=== PATIENT | female | born 1995 | race Caucasian/White ===

== ENCOUNTER 2016-09-30 20:18 | Emergency (ER) | payer BC ==
--- NOTE | 2016-09-30 21:49 | ERNOTE ---
Medical Problem HPI - Narrative Date of Service: 09/30/16 - General Chief Complaint: Nausea/Vomiting Time Seen by Provider: 09/30/16 21:31 Source: patient Exam Limitations: no limitations - Immun/Allergies/Home Medications Immunizations: IMMUNIZATION HX Immunizations Up to Date No History of Influenza Vaccine No Hx Pneumococcal Vaccination No Allergies/Adverse Reactions: Allergies No Known Allergies Allergy (Unverified 04/30/15 11:17) Home Medications: HOME MEDICATIONS Ondansetron [Zofran Odt] 8 mg PO Q8H PRN #10 tab 09/30/16 [Last Taken Unknown] Sulfamethoxazole/Trimethoprim [Bactrim Ds] 1 tab PO BID #20 tab 09/30/16 [Last Taken Unknown] - History of Present History Narrative: Patient is a 20 yo female with onset of nausea and vomiting x 2 days. No associated fevers, ill exposures. Patient LMP was 2 mon ago and not on oral contraceptives. + Sexually active. Timing: getting worse Severity: mild Modifying Factors - (Improves): Present: rest Modifying Factors - (Worsens): Present: eating Review of Systems - Narrative Narrative: Patient has no hx of renal stones, uti, no prior - Review of Systems Constitutional: Present: malaise, other - does not feel well. EYE: Present: no symptoms reported ENT: Present: no symptoms reported Respiratory: Present: no symptoms reported Cardiology: Present: no symptoms reported Gastrointestinal/Abdominal: Present: nausea, vomiting Genitourinary: Present: no symptoms reported Musculoskeletal: Present: back pain - right flank pain notable Skin: Present: no symptoms reported Neurological: Present: no symptoms reported Endocrine: Present: no symptoms reported Hematologic/Lymphatic: Present: no symptoms reported Psych: Present: no symptoms reported All Other Systems: All systems neg except as marked - Patient's Past Medical History Patient History - Medical: No pertinent hx Patient History - Cardiac/Respiratory: Asthma, Hypertension Patient History - Cancer: No Hx of Cancer Patient History - Surgical Procedures: No surgical history Patient History - Other: None LMP (females 10-50): irregular, sexually active, no bcp - Social History Living Situations: home Abuse History: No History of abuse Psych History: Hx of Anxiety Smoking Status: Current every day smoker Patient requests Smoking Cessation Consult: No Initiate information on Smoking Cessation: No Alcohol Use: none Drug Use: none - Immunizations Immunizations Up to Date: No Hx Pneumococcal Vaccination: No History of Influenza Vaccine: No Physical Exam - Physical Exam General Appearance: Present: wd/wn, mild distress Eye Exam: Normal inspection: bilateral, PERRL: bilateral, EOMI: bilateral Ears, Nose, Throat: Present: normal ENT inspection, normal pharynx Neck: Present: normal inspection, nontender Respiratory: Present: no respiratory distress, normal breath sounds, no accessory muscle use, chest nontender, lungs clear Cardiovascular/Chest: Present: regular rate, rhythm, no murmur, normal peripheral pulses Gastrointestinal/Abdominal: Present: normal bowel sounds, nontender, nondistended, soft, no organomegaly Rectal Exam: Present: deferred Back Exam: Present: normal inspection, normal range of motion, CVA tenderness (R ) Extremity Exam: Present: normal inspection Neurological Exam: Present: alert, oriented, normal mood/affect, no motor/ sensory deficits Skin Exam: Present: normal color Lymphatic Exam: Present: no adenopathy Pelvic Exam: Present: deferred ED Progress - Results and Orders Patient's Lab Results:: I have reviewed the patient's lab results. - WBC ELEVEATED, AND UA ABNORMAL - Vital Signs Patient's Vital Signs:: I have reviewed the patient's vital signs. Vital Signs: Vital Signs 09/30/16 20:32 Temperature 36.5 C Pulse Rate 90 Respiratory 18 Rate Blood Pressure 150/99 O2 Sat by Pulse 97 Oximetry - Progress/Reassessment Chief Complaint: Nausea/Vomiting Progress:: Unchanged - PATIENT requesting note for work Plan - Plan Plan: Patient will be discharged home with work excuse today and tomorrow, Recommend she start bactrim urine culture pending and drink lots of water, cranberry juice to avoid uti worsening, Recommend see Dr. Elizabeth Leija on Sunday if not improving. Departure - Departure Clinical Impression: UTI (urinary tract infection) Qualifiers: Urinary tract infection type: site unspecified Hematuria presence: without hematuria Qualified Code(s): N39.0 - Urinary tract infection, site not specified Vomiting Qualifiers: Vomiting type: unspecified Vomiting Intractability: unspecified Nausea presence : unspecified Qualified Code(s): R11.10 - Vomiting, unspecified Disposition: Home self-care Condition: Good Instructions: Nausea, Adult, Rehydration, Adult, Urine Culture and Sensitivity Testing Referrals: Jaciel Engel MD [Primary Care Provider] - Prescriptions: Ondansetron [Zofran Odt] 8 mg PO Q8H PRN #10 tab PRN Reason: Nausea Sulfamethoxazole/Trimethoprim [Bactrim Ds] 1 tab PO BID #20 tab
[2016-09-30 22:07] LABS: Hematocrit 40.9 % (37.0-47.0); Hemoglobin 13.1 gm/dL (12.5-16.0); Mean Cell Volume 82.8 fl (78-100); Mean Corpuscular Hemoglobin 26.5 pg (27-31); Mean Platelet Volume 9.2 fl (6.0-9.5); Neutrophil # 8.3 K/mm3 (1.3-6.0); Neutrophil % 63.5 % (42-75.0); Platelet Count 387 K/mm3 (150-450); Red Blood Count 4.94 M/mm3 (4.2-5.4); Red Cell Distribution Width 14.4 % (11.5-14.0)
[2016-09-30 22:20] LABS: Urine Appearance Clear; Urine Bacteria 2+; Urine Bilirubin Negative (NEGATIVE); Urine Blood Negative /ul (NEGATIVE); Urine Color Dark Yellow; Urine Ketone Negative (NEGATIVE); Urine Mucus Moderate - 2+; Urine Nitrite Negative (NEGATIVE); Urine Protein 15 mg/dL (NEGATIVE); Urine RBC None Seen /hpf (0-5); Urine Specific Gravity >=1.030 SP.GR. (1.005-1.010); Urine Urobilinogen Normal (NORMAL); Urine pH 5.5 pH (5.0-7.0)
[2016-09-30 22:20] LABS: Albumin * 3.8 gm/dl (3.4-5.0); Anion Gap 14.1 mmol/L (6.8-13.8); BUN/Creatinine Ratio 16.5 (9.0-21.6); Bilirubin, Total 0.2 mg/dL (0.0-1.1); Ca. Corrected For Albumin 9.1 mg/dL (8.4-10.2); Calcium * 9.3 mg/dL (7.9-10.9); Carbon Dioxide 24.8 mmol/L (24-32.6); Potassium 3.9 mmol/L (3.4-4.6); Total Protein 7.8 gm/dL (6.2-8.2)
[2016-09-30] MEDS ORDERED: SULFAMETHOXAZOLE/TRIMETHOPRIM 1 TAB TABLET PO ONE (23:16)
[2016-09-30] MEDS ORDERED: ONDANSETRON 4 MG TAB.RAPDIS PO ONE (23:17)
[2016-09-30] MEDS ORDERED: ONDANSETRON 4 MG TAB.RAPDIS ONE (23:27)
[2016-09-30] MEDS ORDERED: SULFAMETHOXAZOLE/TRIMETHOPRIM 1 TAB TABLET ONE (23:27)
[2016-10-01 00:03] VITALS: BP 143/82
== END 2016-09-30 23:35 | disposition home or self-care (01) ==
LOC: ER 20:18
DX: N39.0 Urinary tract infection, site not specified (principal); R11.10 Vomiting, unspecified; Z72.0 Tobacco use

== ENCOUNTER 2017-02-13 10:41 | Emergency (ER) | payer BC ==
[2017-02-13 13:04] VITALS: BP 143/85
--- NOTE | 2017-02-13 13:30 | ERNOTE ---
Medical Problem HPI - Narrative Date of Service: 02/13/17 - General Chief Complaint: General Assessment Time Seen by Provider: 02/13/17 13:07 Source: patient Exam Limitations: no limitations - Immun/Allergies/Home Medications Immunizations: IMMUNIZATION HX Immunizations Up to Date Yes History of Influenza Vaccine No Hx Pneumococcal Vaccination No Allergies/Adverse Reactions: Allergies No Known Allergies Allergy (Unverified 04/30/15 11:17) Home Medications: HOME MEDICATIONS Ondansetron [Zofran Odt] 8 mg PO Q8H PRN #10 tab 09/30/16 [Last Taken Unknown] Sulfamethoxazole/Trimethoprim [Bactrim Ds] 1 tab PO BID #20 tab 09/30/16 [Last Taken Unknown] Acyclovir [Zovirax 5% Ointment] 1 appl TP 5XD #1 tube 02/13/17 [Last Taken Unknown] - History of Present History Narrative: Pt. comes in with c/o swollen lips for a week with sores in the creases of her lips. Pt. states taht this occurs occasional and causes a burning pain and swelling and then will resolve by the time she gets an appointment with her PCP. Pt. denies any SOB, CP, NVD, sore throat, fever, face pain, headache, dizziness, or weakness. Pt. denies any sores anyplace else on body. Pt. denies any alleviating factors, aggravating factors, or prehospital treatment. Review of Systems - Review of Systems Constitutional: Present: no symptoms reported. Absent: recent illness, fever, chills, weakness, fatigue, malaise EYE: Present: no symptoms reported ENT: Present: other - maouth swelling pain and sores Respiratory: Present: no symptoms reported. Absent: shortness of breath, cough , wheezing Cardiology: Present: no symptoms reported. Absent: chest pain, palpitations, edema Gastrointestinal/Abdominal: Present: no symptoms reported. Absent: nausea, vomiting, diarrhea Genitourinary: Present: no symptoms reported Musculoskeletal: Present: no symptoms reported. Absent: back pain, joint pain Skin: Present: rash - see above Neurological: Present: no symptoms reported. Absent: headache, dizziness/light- headedness, numbness, tingling All Other Systems: All systems neg except as marked - Patient's Past Medical History Patient History - Medical: No pertinent hx Patient History - Cardiac/Respiratory: Asthma, Hypertension Patient History - Cancer: No Hx of Cancer Patient History - Surgical Procedures: No surgical history Patient History - Other: None LMP (females 10-50): last week - Social History Living Situations: home Abuse History: No History of abuse Psych History: Hx of Anxiety Smoking Status: Current every day smoker Have you smoked in the past 12 months: Yes Alcohol Use: occasionally Drug Use: none - Immunizations Immunizations Up to Date: Yes Hx Pneumococcal Vaccination: No History of Influenza Vaccine: No Physical Exam - Physical Exam General Appearance: Present: wd/wn, alert, no apparent distress Head Exam: Present: normal inspection, no evidence of injury Eye Exam: Normal inspection: bilateral Ears, Nose, Throat: Present: normal except -, other - open crusting lesions on B sides of lips outer Neck: Present: normal inspection. Absent: lymphadenopathy (R), lymphadenopathy (L) Respiratory: Present: no respiratory distress, normal breath sounds, no accessory muscle use, chest nontender, lungs clear Cardiovascular/Chest: Present: regular rate, rhythm, no murmur, normal peripheral pulses Neurological Exam: Present: alert, oriented, normal mood/affect, no motor/ sensory deficits Skin Exam: Present: normal color, warm/dry, other - see above ED Progress - Vital Signs Patient's Vital Signs:: I have reviewed the patient's vital signs. Vital Signs: Vital Signs 02/13/17 02/13/17 11:21 13:02 Temperature 36.2 C L Pulse Rate 68 65 Respiratory 16 16 Rate Blood Pressure 146/79 143/85 O2 Sat by Pulse 98 97 Oximetry - Progress/Reassessment Chief Complaint: General Assessment Departure - Departure Clinical Impression: Herpes simplex Disposition: Home self-care Condition: Good Instructions: Cold Sore, [id number] Additional Instructions: Please follow up with primary provider in 2-3 days if no improvement. Referrals: Jaciel Engel MD [Primary Care Provider] - Prescriptions: Acyclovir [Zovirax 5% Ointment] 1 appl TP 5XD #1 tube
[2017-02-14 16:30] LABS: Herpes Simplex Type 2 IgG Ab <0.90 index
== END 2017-02-13 13:41 | disposition home or self-care (01) ==
LOC: ER 10:41
DX: B00.9 Herpesviral infection, unspecified (principal); F17.200 Nicotine dependence, unspecified, uncomplicated

== ENCOUNTER 2017-07-23 12:30 | Emergency (ER) | payer BC ==
--- NOTE | 2017-07-23 13:13 | ERNOTE ---
Back Pain ER HPI Date of Service: 07/23/17 Presenting Symptoms: injury/pain to back Time Seen by Provider: 07/23/17 12:51 Source: patient, RN notes reviewed Exam Limitations: no limitations Immunizations: IMMUNIZATION HX Immunizations Up to Date Yes History of Influenza Vaccine No Hx Pneumococcal Vaccination No Allergies/Adverse Reactions: Allergies No Known Allergies Allergy (Unverified 04/30/15 11:17) Home Medications: HOME MEDICATIONS Ondansetron [Zofran Odt] 8 mg PO Q8H PRN #10 tab 09/30/16 [Last Taken Unknown] Sulfamethoxazole/Trimethoprim [Bactrim Ds] 1 tab PO BID #20 tab 09/30/16 [Last Taken Unknown] Acyclovir [Zovirax 5% Ointment] 1 appl TP 5XD #1 tube 02/13/17 [Last Taken Unknown] Narrative: 21 year old female ambulatory to the ED for pain radiating down the back of her left leg that began 3 days ago. She is [address] Dr[address] Snider for her first OB appointment last week. She has never had problems with back pain before. She initially had pain in her low back, but today the pain is only in her leg. She denies any injury. She has not been taking anything for pain. Date (Duration): 07/20/17 Quality/Severity: Reports: moderate, aching Location of pain: Reports: lower back, radiating to lf thigh/leg Activities at Onset: Reports: none Recent Injury?: Reports: no Associated Symptoms: Denies: fever/chills, sweating, constipation/incontinence, nausea/vomiting, problems urinating, difficulty walking, lightheadedness, numbess/weakness in legs Prior Treament: Denies: similar symptoms before Review of Systems - Review of Systems Constitutional: Absent: recent illness, fever, malaise EYE: Present: no symptoms reported ENT: Present: no symptoms reported Respiratory: Absent: shortness of breath, cough Cardiology: Absent: chest pain, palpitations, edema Gastrointestinal/Abdominal: Absent: nausea, vomiting, abdominal pain Genitourinary: Absent: dysuria, hematuria Musculoskeletal: Present: back pain. Absent: joint pain, joint swelling Skin: Absent: rash, lesions, lumps Neurological: Absent: weakness, numbness, tingling Endocrine: Present: no symptoms reported Hematologic/Lymphatic: Present: no symptoms reported Psych: Present: no symptoms reported - Patient's Past Medical History Patient History - Medical: Obesity Patient History - Cardiac/Respiratory: Asthma, Hypertension Patient History - Cancer: No Hx of Cancer Patient History - Surgical Procedures: No surgical history Patient History - Other: None LMP (females 10-50): - LMP (Calendar): 05/09/17 - Social History Living Situations: home Abuse History: No History of abuse Psych History: Hx of Anxiety Smoking Status: Current every day smoker Have you smoked in the past 12 months: Yes Do you dip or chew tobacco: No Alcohol Use: none Drug Use: none - Immunizations Immunizations Up to Date: Yes Hx Pneumococcal Vaccination: No History of Influenza Vaccine: No Physical Exam - Physical Exam General Appearance: Present: wd/wn, alert, mild distress, obese Head Exam: Present: normal inspection Eye Exam: Normal inspection: bilateral Neck: Present: normal inspection, nontender, supple, full range of motion Respiratory: Present: no respiratory distress, normal breath sounds, no accessory muscle use, lungs clear Cardiovascular/Chest: Present: regular rate, rhythm, no murmur Back Exam: Present: normal range of motion, no CVA tenderness, no vertebral tenderness. Absent: muscle spasm Extremity Exam: Present: normal inspection, normal range of motion, no edema Neurological Exam: Present: alert, oriented, normal mood/affect, no motor/ sensory deficits, other - Normal strength against resistance in lower extremities DTR: N=norm/NB=norm/brisk/A=abs/DD=dull/dimin/HC=hyperactive: Knee (R): Normal, Knee (L): Normal Skin Exam: Present: normal color, warm/dry ED Progress - Vital Signs Patient's Vital Signs:: I have reviewed the patient's vital signs. Vital Signs: Vital Signs 07/23/17 12:45 Temperature 36.4 C L Pulse Rate 100 Respiratory 20 Rate Blood Pressure 152/86 O2 Sat by Pulse 99 Oximetry - Progress/Reassessment Chief Complaint: Lower Extremity Pain/ Injury Progress:: Unchanged Departure Clinical Impression: Low back pain with sciatica Qualifiers: Chronicity: acute Back pain laterality: left Sciatica laterality: sciatica of left side Qualified Code(s): M54.42 - Lumbago with sciatica, left side - Departure Disposition: Home Follow Up Needed Condition: Good Instructions: Sciatica, [id number], Back Exercises, [id number], Form - Excuse from Work, School, or Physical Activity Additional Instructions: Stretching and walking are helpful Heat may also help with pain Tylenol for pain as directed on label
[2017-07-24 08:36] VITALS: BP 152/86
== END 2017-07-23 13:15 | disposition home or self-care (01) ==
LOC: ER 12:30
DX: Z33.1 Pregnant state, incidental; F17.200 Nicotine dependence, unspecified, uncomplicated; M54.42 Lumbago with sciatica, left side; Z3A.11 11 weeks gestation of pregnancy

== ENCOUNTER 2018-01-29 18:21 | Inpatient (IN) | payer BC, MEDICAID ==
[2018-01-29] MEDS ORDERED: NALBUPHINE HCL 10 MG/ML AMPUL IV PRN ×2 (18:28)
[2018-01-29] MEDS ORDERED: LIDOCAINE HCL 50 ML VIAL PERI PRN (18:28)
[2018-01-29] MEDS ORDERED: OXYTOCIN/DEXTROSE 5%-WATER 30 UNITS/500 ML BAG IV ONE (18:28)
[2018-01-29] MEDS ORDERED: ONDANSETRON HCL/PF 2 MG/ML VIAL IV PRN ×2 (18:28→23:55)
[2018-01-29] MEDS ORDERED: MISOPROSTOL 100 MCG TABLET VG SCH (18:30)
[2018-01-29] MEDS ORDERED: PENICILLIN G POTASSIUM 5 MILLIONUNT in DEXTROSE 5 % IN WATER 100 ML IV ONE ×2 (19:00)
[2018-01-29] MEDS ORDERED: CALCIUM CARBONATE 500 MG TAB.CHEW PO PRN (21:10)
--- NOTE | 2018-01-29 22:26 | HP ---
Chief Complaint - Chief Complaint Date of Service: 01/29/18 Time of Service: 22:17 Chief Complaint: My water broke History of Present Illness: The patient had a big gush of fluid at home and initially she thought she peed in her pants. She denied any ctx at that time or VB. Fetus is active. Medical History (Last Reviewed 01/29/18 @ 13:39 by Javon Vargas RN) Hypertension affecting Onset Date: 07/17/17 Heart palpitations Onset Date: ~09/28/16 Morbid obesity Onset Date: 07/17/17 PTSD (post-traumatic stress disorder) Onset Date: ~09/28/16 Tobacco abuse Onset Date: ~09/28/16 Surgical History: Surgical History (Last Reviewed 01/29/18 @ 13:39 by Javon Vargas RN) No pertinent past surgical history Family History: Family History (Last Reviewed 01/29/18 @ 13:39 by Javon Vargas RN) Father Diabetes Arthritis Mother Diabetes Migraines Myocardial infarction, Onset Age: 40 Social History: Preferred Language Persian Abuse History No History of abuse Psych History Hx of Anxiety Review Of Systems (GEN) - Review of Systems EENTM: Present: No Symptoms Reported Respiratory: Present: No Symptoms Reported Cardiac: Present: No Symptoms Reported Abdominal: Present: No Symptoms Reported Genitourinary: Present: Other - Loss of fluid Musculoskeletal: Present: No Symptoms Reported Neurological: Present: No Symptoms Reported Skin: Present: No Symptoms Reported Endocrine: Present: No Symptoms Reported Immunizations: IMMUNIZATION HX Immunizations Up to Date Yes History of Influenza Vaccine No Hx Pneumococcal Vaccination No Allergies/Adverse Reactions: Allergies Allergy/AdvReac Type Severity Reaction Status Date / Time No Known Allergies Allergy Verified 01/29/18 13:38 Home Medications: HOME MEDICATIONS [id number]/Iron Fumarate/FA/Dss [ 19 Tablet] 1 ea PO DAILY 09/16/17 [Last Taken Unknown] Exam - Exam Vital Signs: Vital Signs - Last Taken Temp 36.7 C 01/29/18 20:17 Pulse 105 H 01/29/18 20:17 Resp 18 01/29/18 20:17 BP 139/58 01/29/18 20:17 Pulse Ox 99 01/29/18 20:17 Constitutional: Present: Alert, Oriented x3, Cooperative, No distress Back Exam: Present: normal inspection Breasts: Present: Exam deferred Respiratory: Present: chest non-tender, lungs clear Cardiovascular/Chest: Present: normal peripheral pulses, edema - 1+ edema bilaterally Abdomen: Present: Normal bowel sounds, soft, nontender /Rectal: Present: Exam deferred Extremity: Present: non-tender, no calf tenderness Skin Exam: Present: normal color, warm/dry, no cyanosis Appearance: Present: appropriate appearance Eye contact: Present: cooperative, good eye contact Thoughts: Present: normal thought pattern Diagnostic Studies: Laboratory Results Blood Type A Positive 01/29/18 19:00 Antibody Screen Negative 01/29/18 19:00 Assessment/Plan - Narrative Narrative: PROM at term. Pitocin augmentation. GBS positive: GBS prophylaxis CHTN: BPs normal, continue to monitor
[2018-01-29] MEDS: PENICILLIN G POTASSIUM 2.5 MILLIONUNT in DEXTROSE 5 % IN WATER 100 ML IV SCH ×2 (22:56)
[2018-01-29] MEDS ORDERED: BUPIVACAINE HCL/PF 30 ML VIAL EP SCH (23:45)
[2018-01-29] MEDS ORDERED: NALOXONE HCL 1 MG/1 ML SYRG IV PRN (23:55)
[2018-01-30] MEDS: RINGER'S SOLUTION,LACTATED 1,000 ML IV PRN ×3 (00:02→15:02)
--- NOTE | 2018-01-30 00:25 | ANES ---
Anesthesia Pre Procedure Eval Vitals/Labs: Last Vital Signs Temp 36.7 C 01/29/18 20:17 Pulse 105 H 01/29/18 20:17 Resp 18 01/29/18 20:17 BP 139/58 01/29/18 20:17 Pulse Ox 99 01/29/18 20:17 HOME MEDICATIONS [id number]/Iron Fumarate/FA/Dss [ 19 Tablet] 1 ea PO DAILY 09/16/17 [Last Taken Unknown] Allergies/Adverse Reactions: Allergies Allergy/AdvReac Type Severity Reaction Status Date / Time No Known Allergies Allergy Verified 01/29/18 13:38 - Planned Procedure Planned Procedure: labor epidural Medication List Reviewed:: Yes Allergies Verified: Yes Medical History (Last Reviewed 01/29/18 @ 13:39 by Javon Vargas RN) Hypertension affecting Onset Date: 07/17/17 Heart palpitations Onset Date: ~09/28/16 Morbid obesity Onset Date: 07/17/17 PTSD (post-traumatic stress disorder) Onset Date: ~09/28/16 Tobacco abuse Onset Date: ~09/28/16 Surgical History (Last Reviewed 01/29/18 @ 13:39 by Javon Vargas RN) No pertinent past surgical history Family History (Last Reviewed 01/29/18 @ 13:39 by Javon Vargas RN) Father Diabetes Arthritis Mother Diabetes Migraines Myocardial infarction, Onset Age: 40 - Cardiovascular Tolerates Activity: Good - Anesthesia Assessment and Plan ASA Class: PS, III Anesthesia Type Plan: Epidural
--- NOTE | 2018-01-30 00:47 | ANES ---
Anesthesia Procedure Note Procedure Note: ANESTHESIA PROCEDURE NOTE Date of Procedure: 01/30/2018. Time of procedure: 0. Performed by: Adalberto Armstrong CRNA [place] Specialists: None. Preprocedure diagnosis: Active labor. Post procedure diagnosis: Same. Procedure: Insertion of labor epidural. Indications: The patient is a 22 -year-old female in active labor requesting labor epidural for pain management. Findings: See below. Details of the procedure: The patient was placed in a sitting position. DuraPrep as well as Betadine swabs X3 was applied to the patient's back. Patient was then draped in a sterile fashion. Lidocaine 1% was infiltrated to the skin and subcutaneous tissues at the level of the L3-4 interspace. The epidural space was identified using a 18-gauge Tuohy needle with loss-of- resistance technique. Epidural catheter was inserted to a depth of 13 centimeters at skin. Negative test dose was elicited using 3 mL of 1.5% preservative-free lidocaine plus epinephrine 1 200,000. The epidural catheter was then taped and secured in place. A loading dose of 8 mL of 0.25% preservative-free bupivacaine was administered to the epidural catheter after negative aspiration for blood and CSF. EBL: Minimal. Fluids: N/A. Specimen: N/A. Post procedure condition: The patient tolerated the procedure well. No complications were noted. Thank you for this consultation. Adalberto Armstrong CRNA
--- NOTE | 2018-01-30 00:47 | ANES ---
Post Anesthesia Assessment - Vital Signs Vitals: Last Vital Signs Temp 36.4 C 01/30/18 00:44 Pulse 86 01/30/18 00:44 Resp 18 01/30/18 00:44 BP 139/62 01/30/18 00:44 Pulse Ox 98 01/30/18 00:44 Airway Patency: Normal - Mental Status Level Of Consciousness: Awake - N/V Assessment Nausea/Vomiting Presence: None Dehydration:: No
[2018-01-30] MEDS: BUPIVACAINE HCL/0.9 % NACL/PF 250 ML EP PRN ×2 (00:59→15:33)
[2018-01-30] MEDS: PENICILLIN G POTASSIUM 2.5 MILLIONUNT in DEXTROSE 5 % IN WATER 100 ML IV SCH ×8 (03:07→14:15)
--- NOTE | 2018-01-30 08:31 | PN ---
Progess Note - Interim Date: 01/30/18 Time: 08:29 Narrative: 01/30/18 08:29 Patient comfortable with epidural VSS cvx 3-4/60/-2 Fetus is cat 1 Pitocin currently at 12 milliunits Continue to titrate pitocin up
[2018-01-30] MEDS ORDERED: OXYTOCIN 20 UNITS in RINGER'S SOLUTION,LACTATED 1,000 ML IV ONE (15:53)
[2018-01-30] MEDS ORDERED: METOCLOPRAMIDE HCL 5 MG/ML VIAL IV ONE (15:53)
[2018-01-30] MEDS ORDERED: RINGER'S SOLUTION,LACTATED 1,000 ML IV PRN (15:53)
[2018-01-30] MEDS ORDERED: FAMOTIDINE 20 MG in DEXTROSE 5 % IN WATER 100 ML IV ONE ×2 (15:53)
[2018-01-30] MEDS ORDERED: ceFAZolin SODIUM 3 GM in DEXTROSE 5 % IN WATER 100 ML IV ONE ×2 (15:53)
[2018-01-30] MEDS ORDERED: CITRIC ACID/SODIUM CITRATE 60 ML BTL PO ONE (15:53)
--- NOTE | 2018-01-30 15:58 | PN ---
Progess Note - Interim Date: 01/30/18 Time: 15:56 Narrative: 01/30/18 15:56 Patient's cervix rechecked cvx is 4-5/70/-2 or unchanged Pitocin at 20 milliunits per minute Proceed with delivery for arrest of dilation. All risks, benefits, and alternatives of the procedure were explained to the patient and the patient consents to the procedure.
--- NOTE | 2018-01-30 16:26 | ANES ---
Anesthesia Pre Procedure Eval Vitals/Labs: Last Vital Signs Temp 36.4 C 01/30/18 00:44 Pulse 86 01/30/18 00:44 Resp 18 01/30/18 00:44 BP 139/62 01/30/18 00:44 Pulse Ox 98 01/30/18 00:44 HOME MEDICATIONS [id number]/Iron Fumarate/FA/Dss [ 19 Tablet] 1 ea PO DAILY 09/16/17 [Last Taken Unknown] Allergies/Adverse Reactions: Allergies Allergy/AdvReac Type Severity Reaction Status Date / Time No Known Allergies Allergy Verified 01/29/18 13:38 - Planned Procedure Planned Procedure: Medical History (Last Reviewed 01/30/18 @ 16:23 by Daren Durham CRNA) Hypertension affecting Onset Date: 07/17/17 Heart palpitations Onset Date: ~09/28/16 Morbid obesity Onset Date: 07/17/17 PTSD (post-traumatic stress disorder) Onset Date: ~09/28/16 Tobacco abuse Onset Date: ~09/28/16 Surgical History (Last Reviewed 01/30/18 @ 16:23 by Daren Durham CRNA) No pertinent past surgical history Family History (Last Reviewed 01/30/18 @ 16:23 by Daren Durham CRNA) Father Diabetes Arthritis Mother Diabetes Migraines Myocardial infarction, Onset Age: 40 - Family Anesthesia History Family History:: no untoward family reactions to anesthesia - Airway/Neck/Teeth Teeth Condition: Intact Mallampatti Score: 3 Thyromental (T-M) distance: > 6 cm Mandibulo Hyoid distance: > 3 cm - Respiratory Respiratory: lungs clear Smoking Status: Current some day smoker Discussed smoking cessation including day of surgery: Yes Sleep Apnea currently treated: No Sleep Apnea by current assessment: No - Cardiovascular Patient History - Cardiac/Respiratory: No pertinent hx Tolerates Activity: Fair Heart Sounds: S1 & S2, Regular - Anesthesia Assessment and Plan ASA Class: PS, III, E Anesthesia Type Plan: Epidural Planned difficult intubation/equipment available: No
[2018-01-30] MEDS ORDERED: BISACODYL 10 MG SUPP.RECT RC PRN (17:31)
[2018-01-30] MEDS ORDERED: diphenhydrAMINE HCL 25 MG CAPSULE PO PRN (17:31)
[2018-01-30] MEDS ORDERED: DEXTROSE 5%-LACTATED RINGERS 1,000 ML IV PRN (17:31)
[2018-01-30] MEDS ORDERED: ACETAMINOPHEN 500 MG TABLET PO PRN (17:31)
[2018-01-30] MEDS ORDERED: ACETAMINOPHEN 325 MG TABLET PO PRN (17:31)
[2018-01-30] MEDS ORDERED: oxyCODONE HCL/ACETAMINOPHEN 1 TAB TABLET PO PRN (17:31)
[2018-01-30] MEDS ORDERED: ONDANSETRON HCL/PF 2 MG/ML VIAL IV PRN (17:31)
[2018-01-30] MEDS ORDERED: SENNOSIDES 8.6 MG TABLET PO PRN (17:31)
[2018-01-30] MEDS ORDERED: SIMETHICONE 80 MG TAB.CHEW PO PRN (17:31)
--- NOTE | 2018-01-30 17:47 | ANES ---
Post Anesthesia Discharge - Transfer of Care Transfer of Care handoff given to nurse: Yes - Discharge from PACU Discharge from PACU when meets criteria: Yes
--- NOTE | 2018-01-30 17:48 | ANES ---
Post Anesthesia Assessment - Vital Signs Vitals: Last Vital Signs Temp 36.6 C 01/30/18 17:40 Pulse 106 H 01/30/18 17:45 Resp 18 01/30/18 17:45 BP 128/78 01/30/18 17:45 Pulse Ox 97 01/30/18 17:45 Airway Patency: Normal - Mental Status Level Of Consciousness: Awake - Pain Level Pain Score: 2 - N/V Assessment Nausea/Vomiting Presence: None Dehydration:: No
--- NOTE | 2018-01-30 17:52 | OR ---
Operative Report - Dictated Report Narrative: Procedure: delivery Preop diagnosis: arrest of dilation, CHTN, morbid obesity, PROM, GBS positive Postop diagnosis: same Anesthesia: epidural Surgeon: Dr. Sheehan Grinding Machine Tender: Dr. Wiley EBL: 600 mL Date and time of delivery: 01/30/18 at 1706 Sex: female Birthweight: 2950 grams APGARS: 8/9 Indication for the procedure: The patient is a 22 yo at 37w 4d who presented to labor and delivery on 01/29/18 with PROM. She was augmented with pitocin but did not progress beyond 5cm. All risks, benefits, and alternatives of the procedure were explained to the patient and the patient consented to the procedure. Description of the procedure: The patient was taken to the operating room where her epidural anesthesia was found to be adequate. She was prepped and draped in the standard surgical fashion. A time out was performed. A Pfannestiel skin incision was made. The incision was carried through the subcutaneous tissue. The fascia was incised in the midline. The fascial incision was extended sharply. The fascia was grasped with Karolina clamps and from the underlying rectus muscles. The rectus muscles were in the midline. The peritoneum was entered bluntly. An X- large Andry retractor was placed. The lower uterine segment was incised in a transverse fashion. The uterine incision was extended bluntly. The head was delivered atraumatically. The rest of the was delivered atraumatically. The umbilical cord was clamped and cut. The infant was handed to the attending pediatric staff. The placenta was removed. The placenta was examined and appeared intact. The uterine cavity was cleaned with a lap. The uterine incision was closed with 0-vicryl. Hemostasis was obtained with an additional suture in the midline. Hemostasis was adequate. The fascia was closed with 1-0 vicryl. The subcutaneous tissue was irrigated. The subcutaneous tissue was closed with 2-0 vicryl. The skin incision was closed with 4-0 monocryl on a Jono needle. Dermabond was placed over the incision. Complications: none
[2018-01-30] MEDS: KETOROLAC TROMETHAMINE 30 MG/ML VIAL IV SCH (19:11)
[2018-01-30] MEDS: oxyCODONE HCL/ACETAMINOPHEN 1 TAB TABLET PO PRN (20:16)
[2018-01-30] MEDS: DOCUSATE SODIUM 100 MG CAPSULE PO SCH (20:16)
[2018-01-31] MEDS: KETOROLAC TROMETHAMINE 30 MG/ML VIAL IV SCH ×3 (02:04→13:16)
[2018-01-31] MEDS: oxyCODONE HCL/ACETAMINOPHEN 1 TAB TABLET PO PRN ×5 (08:08→21:01)
[2018-01-31] MEDS: DOCUSATE SODIUM 100 MG CAPSULE PO SCH ×2 (08:08→21:02)
--- NOTE | 2018-01-31 09:24 | PN ---
Subjective - Date and Time Seen Date: 01/31/18 Time: 09:22 Objective - Review of Systems Generalized/Overall Review: Reports: No Symptoms Reported EENTM: Reports: No Symptoms Reported Respiratory: Reports: No Symptoms Reported Cardiac: Reports: No Symptoms Reported Abdominal: Reports: No Symptoms Reported Genitourinary Symptoms: Reports: No Symptoms Reported Musculoskeletal Complaints: Reports: No Symptoms Reported Neurological: Reports: No Symptoms Reported Skin: Reports: No Symptoms Reported Endocrine: Reports: No Symptoms Reported - Vitals Vitals: Last Vital Signs Temp 36.3 C 01/31/18 07:17 Pulse 88 01/31/18 07:17 Resp 18 01/31/18 07:17 BP 116/58 01/31/18 07:17 Pulse Ox 97 01/31/18 07:17 - Exam Constitutional: Present: Alert, Oriented x3, Cooperative, No distress Cardiovascular/Chest: Present: no edema Abdomen: Present: soft, nontender Extremity: Present: non-tender, no calf tenderness Skin Exam: Present: normal color, warm/dry, no cyanosis Appearance: Present: appropriate appearance Eye contact: Present: cooperative Thoughts: Present: normal thought pattern - POD 1 s/p delivery Doing well Work on pain control Discharge POD 3 Cauti Physician Documentation - Urinary Catheter Management Urethral (Montanez) Date of Insertion: 01/30/18 Time of Insertion: 01:30
[2018-01-31] MEDS: IBUPROFEN 800 MG TABLET PO PRN (17:52)
[2018-02-01] MEDS: oxyCODONE HCL/ACETAMINOPHEN 1 TAB TABLET PO PRN ×5 (02:09→15:56)
[2018-02-01] MEDS: IBUPROFEN 800 MG TABLET PO PRN ×2 (02:09→09:38)
[2018-02-01 08:34] VITALS: BP 128/78
--- NOTE | 2018-02-01 09:29 | PN ---
Subjective - Date and Time Seen Date: 02/01/18 Time: 09:27 Objective - Review of Systems Generalized/Overall Review: Reports: No Symptoms Reported EENTM: Reports: No Symptoms Reported Respiratory: Reports: No Symptoms Reported Cardiac: Reports: No Symptoms Reported Abdominal: Reports: No Symptoms Reported Genitourinary Symptoms: Reports: No Symptoms Reported Musculoskeletal Complaints: Reports: No Symptoms Reported Neurological: Reports: No Symptoms Reported Skin: Reports: No Symptoms Reported Endocrine: Reports: No Symptoms Reported - Vitals Vitals: Last Vital Signs Temp 36.9 C 02/01/18 08:31 Pulse 97 02/01/18 08:31 Resp 18 02/01/18 08:31 BP 128/78 02/01/18 08:31 Pulse Ox 96 02/01/18 08:31 - Exam Constitutional: Present: Alert, Oriented x3, Cooperative Breasts: Present: Exam deferred Respiratory: Present: chest non-tender, lungs clear Cardiovascular/Chest: Present: normal peripheral pulses, regular rate, rhythm Abdomen: Present: soft, nontender, nondistended /Rectal: Present: Exam deferred Extremity: Present: non-tender, no calf tenderness Skin Exam: Present: normal color, warm/dry, no cyanosis Appearance: Present: appropriate appearance Eye contact: Present: cooperative Thoughts: Present: normal thought pattern Cauti Physician Documentation - Urinary Catheter Management Urethral (Montanez) Urethral Indwelling: No Date of Insertion: 01/30/18 Time of Insertion: 01:30 Assessment/Plan Plan Narrative: The patient is considering discharge today on POD2. Otherwise discharge tomorrow
[2018-02-01] MEDS: DOCUSATE SODIUM 100 MG CAPSULE PO SCH (09:38)
--- NOTE | 2018-02-01 10:39 | DS ---
(1) Arrest of dilation, delivered, current hospitalization Problem: Acute (2) S/P primary low transverse Problem: Acute Procedures Performed: see notes below List Procedures: Primary delivery Results and Findings: Lab Pending Results 01/29/18 19:00: Blood Type A Positive, Antibody Screen Negative Discharge Location: Home Disposition: Home self-care Condition: Good Discharge Activity: Activity as tolerated Discharge Diet: General/regular food Prescriptions (Any new or edited meds): oxyCODONE HCL/ACETAMINOPHEN [Percocet 5 MG/325 MG] 2 tab PO Q4H PRN 10 Days #30 tablet PRN Reason: Severe Pain (Pain Scale 7-10) Complete Home Medications List: Complete Home Medication List: [id number]/Iron Fumarate/FA/Dss [ 19 Tablet] 1 ea PO DAILY 09/16/17 oxyCODONE HCL/ACETAMINOPHEN [Percocet 5 MG/325 MG] 2 tab PO Q4H PRN 10 Days #30 tablet 02/01/18
== END 2018-02-01 17:25 | disposition home or self-care (01) | DRG 765 ==
LOC: OB 18:21
PROVIDERS: ADMIT Obstetrics & Gynecology; ATTEND Obstetrics & Gynecology
CPT/HCPCS: 59025; 86850; 86900

== ENCOUNTER 2018-11-27 11:30 | Inpatient (IN) ==
[2018-12-27] MEDS ORDERED: OXYTOCIN 20 UNITS in RINGER'S SOLUTION,LACTATED 1,000 ML IV ONE (04:47)
[2018-12-27] MEDS ORDERED: ceFAZolin SODIUM 3 GM in DEXTROSE 5 % IN WATER 100 ML IV ONE ×2 (04:47)
[2018-12-27] MEDS: RINGER'S SOLUTION,LACTATED 1,000 ML IV PRN ×2 (05:28→07:00)
[2018-12-27 06:30] LABS: Cocaine Ur Negative (NEGATIVE); Urine Barbiturate Negative (NEGATIVE); Urine Benzodiazepines Negative (NEGATIVE); Urine Opiates Negative (NEGATIVE); Urine PCP Negative (NEGATIVE); Urine THC Negative (NEGATIVE)
--- NOTE | 2018-12-27 07:29 | ANES ---
Anesthesia Pre Procedure Eval Vitals/Labs: Last Vital Signs Temp 36.6 C 12/27/18 06:06 Pulse 100 12/27/18 06:06 Resp 16 12/27/18 06:06 BP 131/63 12/27/18 06:06 Pulse Ox 98 12/27/18 06:06 HOME MEDICATIONS [id number]/Iron Fumarate/FA/Dss [ 19 Tablet] 1 ea PO DAILY 05/20/18 [Last Taken Unknown] acetaminophen 325 mg capsule 325 mg PO Q6H PRN 05/28/18 [Last Taken Unknown] Allergies/Adverse Reactions: Allergies Allergy/AdvReac Type Severity Reaction Status Date / Time No Known Allergies Allergy Verified 12/27/18 05:38 - Planned Procedure Planned Procedure: Repeat Section Medication List Reviewed:: Yes Allergies Verified: Yes Medical History (Updated 12/23/18 @ 16:10 by Madalyn Plata MD) Hypertension affecting Onset Date: 07/17/17 Heart palpitations Onset Date: ~09/28/16 since a teenager Morbid obesity Onset Date: 07/17/17 PTSD (post-traumatic stress disorder) Onset Date: ~09/28/16 Tobacco abuse Onset Date: ~09/28/16 Surgical History (Updated 12/23/18 @ 16:10 by Madalyn Plata MD) Previous section Onset Date: ~01/30/18 primary Family History (Updated 01/24/18 @ 13:30 by Dana Jean LPN) Father Diabetes Arthritis Mother Diabetes Migraines Myocardial infarction, Onset Age: 40 - Family Anesthesia History Family History:: no untoward family reactions to anesthesia - Airway/Neck/Teeth Within Normal Limits:: Yes Teeth Condition: intact Neck Exam: full range of motion Mallampatti Score: 2 Thyromental (T-M) distance: > 6 cm Mandibulo Hyoid distance: > 3 cm - Respiratory Respiratory Physical: lungs clear Smoking Status: Current every day smoker Discussed smoking cessation including day of surgery: Yes Sleep Apnea currently treated: No Sleep Apnea by current assessment: No - Cardiovascular Tolerate Activity: Fair Heart Sounds: S1 & S2, Regular - Anesthesia Assessment and Plan ASA Class: PS, II Anesthesia Type Plan: Spinal Planned difficult intubation/equipment available: No
[2018-12-27] MEDS ORDERED: HYDROcodone/ACETAMINOPHEN 1 EACH TABLET PO PRN (09:07)
[2018-12-27] MEDS ORDERED: BISACODYL 10 MG SUPP.RECT RC PRN (09:07)
[2018-12-27] MEDS ORDERED: SENNOSIDES 8.6 MG TABLET PO PRN (09:07)
[2018-12-27] MEDS ORDERED: ONDANSETRON HCL/PF 2 MG/ML VIAL IV PRN (09:07)
[2018-12-27] MEDS ORDERED: diphenhydrAMINE HCL 25 MG CAPSULE PO PRN (09:07)
--- NOTE | 2018-12-27 09:08 | OR ---
Operative Report - Dictated Report Narrative: Date of delivery: 12/27/2018 Time of delivery: 826 Gender: male APGARS: 8/9 weight: 4227 grams Procedure: repeat delivery Surgeon: Dr. Plata Anesthesia: Spinal Anesthesiologist: Gilles Durham CRNA Description of the procedure: The patient was taken to the operating room where her epidural anesthesia was found to be adequate. She was then prepped and draped in the supine position in the standard surgical fashion. A Pfannestiel skin incision was made. The incision was carried through the subcutaneous tissue. The fascia was incised in the midline. The fascia was from the underlying rectus muscles. The omentum was seen in the middle of the incision consistent with an incisional hernia. The rectus muscles were in the midline. The peritoneum was entered bluntly far away from the bladder. A large Andry retractor was placed. The uterus was incised in a low transverse fashion. The head was delivered with difficulty and a vacuum had to be placed to effect delivery due to a large head. There was one pop off of t he vacuum device and strong pushing efforts were required to deliver the head. Following this due to a large size infant the 's right hand was delivered to make additional room to deliver a large torso. The rest of the infant was delivered atraumatically. The infant was handed off to the attending pediatric staff. Cord blood was obtained. The placenta was delivered by expression. The uterus was cleared of all clots and debris. The uterine incision was closed with 0-vicryl in a running locking fashion. Two additional figure of eight sutures were placed for additional hemostasis. Hemostasis was excellent. The Andry retractor was removed from the abdomen. The subfascial area, the uterine incision, the rectus muscles and the bladder area were inspected to ensure hemostasis. The fascia was closed with 1-0 vicryl. The subcutaneous tissue was irrigated. The subcutaneous tissue space was closed with 2-0 vicryl. The skin incision was closed with 3-0 monocryl on a Jono need le. Dermabond was placed over the incision and a pressure dressing was applied. All sponge, lap, and needle counts were correct. The patient tolerated the procedure well. She was transferred to the recovery room in stable condition. EBL: 600 mL Complications: none Specimens: placenta History for Definition: * The number of deliveries resulting in a live the patient experienced prior to current hospitalization * The previous delivery of live twins or any live multiple gestation is considered one live event. *If primagravida or nulliparous is documented select zero for the number of previous live births. Live Events: 1
--- NOTE | 2018-12-27 09:18 | ANES ---
Post Anesthesia Discharge - Transfer of Care Transfer of Care handoff given to nurse: Yes - Discharge from PACU Discharge from PACU when meets criteria: Yes
[2018-12-27] MEDS: HYDROcodone/ACETAMINOPHEN 1 EACH TABLET PO PRN ×5 (10:15→23:17)
[2018-12-27] MEDS: KETOROLAC TROMETHAMINE 30 MG/ML VIAL IV PRN ×3 (10:16→23:23)
--- NOTE | 2018-12-27 15:09 | ANES ---
Post Anesthesia Assessment - Vital Signs Vitals: Last Vital Signs Temp 35.6 C L 12/27/18 14:00 Pulse 106 H 12/27/18 14:00 Resp 18 12/27/18 14:00 BP 133/58 12/27/18 14:00 Pulse Ox 99 12/27/18 14:00 Airway Patency: Normal - Mental Status Level Of Consciousness: Awake - Pain Level Pain Score: 0 - N/V Assessment Nausea/Vomiting Presence: None Dehydration:: No
[2018-12-27] MEDS: guaiFENesin 100 MG/5 ML SYRUP PO PRN (20:05)
[2018-12-27] MEDS: DOCUSATE SODIUM 100 MG CAPSULE PO SCH (20:05)
[2018-12-28] MEDS: HYDROcodone/ACETAMINOPHEN 1 EACH TABLET PO PRN ×5 (04:50→21:57)
[2018-12-28] MEDS: KETOROLAC TROMETHAMINE 30 MG/ML VIAL IV PRN (07:20)
[2018-12-28] MEDS: guaiFENesin 100 MG/5 ML SYRUP PO PRN ×4 (07:54→22:11)
[2018-12-28] MEDS: DOCUSATE SODIUM 100 MG CAPSULE PO SCH ×3 (07:54→20:21)
--- NOTE | 2018-12-28 09:03 | PN ---
Subjective - Date and Time Seen Date: 12/28/18 Time: 09:01 Subjective Narrative: Pt without complaints Objective Objective Narrative: See vital signs - Review of Systems Generalized/Overall Review: Reports: No Symptoms Reported Misc: All systems neg except as marked - Vitals Vitals: Last Vital Signs Temp 36.6 C 12/28/18 07:26 Pulse 96 12/28/18 07:26 Resp 18 12/28/18 07:26 BP 148/72 H 12/28/18 07:26 Pulse Ox 98 12/28/18 07:26 - Exam Constitutional: Present: Alert, Oriented x3, Cooperative, No distress Skin Exam: Present: normal color, warm/dry, no cyanosis Appearance: Present: appropriate appearance Eye contact: Present: cooperative Thoughts: Present: normal thought pattern Cauti Physician Documentation - Urinary Catheter Management Urethral (Montanez) Urethral Indwelling: No Date of Insertion: 12/27/18 Time of Insertion: 08:05 Date of Removal: 12/27/18 Time of Removal: 20:41 Assessment/Plan Plan Narrative: POD 1 s/p repeat delivery Doing well Discharge POD 3
[2018-12-28] MEDS: IBUPROFEN 800 MG TABLET PO PRN ×2 (13:23→19:25)
[2018-12-29] MEDS: HYDROcodone/ACETAMINOPHEN 1 EACH TABLET PO PRN ×4 (01:06→12:16)
[2018-12-29] MEDS: IBUPROFEN 800 MG TABLET PO PRN ×3 (01:59→14:31)
[2018-12-29] MEDS: guaiFENesin 100 MG/5 ML SYRUP PO PRN ×2 (05:38→11:03)
[2018-12-29] MEDS: SIMETHICONE 80 MG TAB.CHEW PO PRN ×2 (06:51→11:03)
[2018-12-29] MEDS: DOCUSATE SODIUM 100 MG CAPSULE PO SCH (09:02)
--- NOTE | 2018-12-29 09:09 | PN ---
Subjective - Date and Time Seen Date: 12/29/18 Time: 09:08 Subjective Narrative: Pt without complaints Objective Objective Narrative: See vital signs - Review of Systems Generalized/Overall Review: Reports: No Symptoms Reported Misc: All systems neg except as marked - Vitals Vitals: Last Vital Signs Temp 36.4 C 12/29/18 06:54 Pulse 88 12/29/18 06:54 Resp 14 12/29/18 06:54 BP 130/79 12/29/18 06:54 Pulse Ox 97 12/29/18 06:54 - Exam Constitutional: Present: Alert, Oriented x3, Cooperative, No distress Abdomen: Present: soft, nontender, nondistended - incision c/d/i Extremity: Present: non-tender, no calf tenderness Skin Exam: Present: normal color, warm/dry, no cyanosis Appearance: Present: appropriate appearance Eye contact: Present: cooperative Thoughts: Present: normal thought pattern Cauti Physician Documentation - Urinary Catheter Management Urethral (Montanez) Urethral Indwelling: No Date of Insertion: 12/27/18 Time of Insertion: 08:05 Date of Removal: 12/27/18 Time of Removal: 20:41 Assessment/Plan Plan Narrative: POD 2 s/p delivery Doing well Discharge POD 3
[2018-12-29 12:24] VITALS: BP 139/70
== END 2018-12-29 14:37 | disposition home or self-care (01) | DRG 787 ==
LOC: OB 12-27 04:38
PROVIDERS: ADMIT Obstetrics & Gynecology; ATTEND Obstetrics & Gynecology
CPT/HCPCS: 59025; 80307; 86850; 88307